=== PATIENT | female | born 1955 | race Asian ===

== ENCOUNTER 2017-11-22 23:08 | Emergency (ER) | payer SELFPAY ==
[~2017-11-22] VITALS: Ht 170.2 cm; Wt 59.0 kg
[2017-11-22 23:21] VITALS: Ht 170.2 cm; Wt 59.0 kg
[2017-11-23 00:33] VITALS: BP 149/90
== END 2017-11-23 00:33 | disposition home or self-care (01) ==
LOC: ED 23:08
DX: S62.101A Fracture of unspecified carpal bone, right wrist, initial encounter for closed fracture (principal); Z88.0 Allergy status to penicillin; W10.9XXA Fall (on) (from) unspecified stairs and steps, initial encounter; Y93.89 Activity, other specified; Y92.89 Other specified places as the place of occurrence of the external cause; Y99.8 Other external cause status
CPT/HCPCS: Q0092